=== PATIENT | male | born 1975 | race Two or more races ===

== ENCOUNTER 2018-09-11 14:18 | Emergency (ER) | payer OTHER ==
--- NOTE | 2018-09-11 14:21 | EDM.PDOC ---
ED HPI GENERAL MEDICAL PROBLEM - General Chief Complaint: Laceration Stated Complaint: SENT FROM [facility]. Time Seen by Provider: 09/11/18 14:20 Source of Information: Reports: Patient History Limitations: Reports: No Limitations - History of Present Illness INITIAL COMMENTS - FREE TEXT/NARRATIVE: History of present illness: []Patient was using a sandblasted 11:30 this morning while on a ladder when the ladder gave way and the sandblaster cut his left hand area and patient went to [facility] and then was sent to the emergency room. Patient is not up-to- date with immunizations. Review of systems: As per history of present illness and below otherwise all systems reviewed and negative. Past medical history: As per history of present illness and as reviewed below otherwise noncontributory. Surgical history: As per history of present illness and as reviewed below otherwise noncontributory. Social history: No reported history of drug or alcohol abuse. Family history: As per history of present illness and as reviewed below otherwise noncontributory. Physical exam: General: Well developed, well nourished in NAD HEENT: Atraumatic, normocephalic, pupils reactive, negative for conjunctival pallor or scleral icterus, mucous membranes moist, throat clear, neck supple, nontender, trachea midline. Lungs: Clear to auscultation, breath sounds equal bilaterally, chest nontender. Heart: S1S2, regular, negative for clicks, rubs, or JVD. Abdomen: NABS, Soft, nondistended, nontender. Negative for masses or hepatosplenomegaly. Negative for costovertebral tenderness. Pelvis: Stable nontender. Genitourinary: Deferred. Rectal: Deferred. Extremities: Left hand with laceration dorsal base of index finger and over his index metacarpal no bone visualized, no active bleeding sensation intact distally negative for cords or calf pain. Neurovascular unremarkable. Neuro: Awake, alert, oriented. Cranial nerves II through XII unremarkable. Cerebellum unremarkable. Motor and sensory unremarkable throughout. Exam nonfocal. Skin:warm and dry Diagnostics: Left hand x-ray showing no fractures, sandblasted debris and gas in his hand Therapeutics: Toradol, tetanus update and Ancef IV ED Course: Stable, called [facility] accepts Impression: Sandblasted injury to hand Prescriptions: None Plan: Answer to [facility] to [facility] surgery for either treatment. Definitive disposition and diagnosis as appropriate pending reevaluation and review of above. left arm Pain Score (Numeric/FACES): 7 - Related Data Allergies Allergy/AdvReac Type Severity Reaction Status Date / Time No Known Allergies Allergy Verified 09/11/18 14:25 Home Meds: Home Meds . [No Known Home Meds] 09/11/18 [History] ED ROS GENERAL - Review of Systems Review Of Systems: ROS reveals no pertinent complaints other than HPI. ED EXAM, SKIN/RASH Exam: See Below (See history of present illness) Course - Vital Signs Last Recorded V/S: Last Vital Signs Temp 98.5 F 09/11/18 14:24 Pulse 78 09/11/18 14:24 Resp 18 09/11/18 14:24 BP 127/87 09/11/18 14:24 Pulse Ox 98 09/11/18 14:24 - Orders/Labs/Meds Orders: Active Orders 24 hr Category Date Time Status Vaccines to be Administered [RC] PER UNIT ROUTINE Care 09/11/18 14:27 Active NPO [Nothing Per Oral Diet] [DIET] Diet 09/11/18 Dinner Active Sodium Chloride 0.9% [Saline Flush] Med 09/11/18 14:46 Active 10 ml FLUSH ASDIRECTED PRN Sodium Chloride 0.9% [Saline Flush] Med 09/11/18 14:46 Active 2.5 ml FLUSH ASDIRECTED PRN ceFAZolin [Ancef] 1 gm Med 09/11/18 15:13 Active Premix Bag 1 bag IV ONETIME Saline Lock Insert [OM.PC] Stat Oth 09/11/18 14:46 Ordered Medication Orders Cefazolin Sodium/Dextrose 1 gm (/ Premix) 50 mls @ 100 mls/hr IV ONETIME ONE Stop: 09/11/18 15:42 Last Admin: 09/11/18 15:14 Dose: 100 mls/hr Sodium Chloride (Saline Flush) 10 ml FLUSH ASDIRECTED PRN PRN Reason: Keep Vein Open Sodium Chloride (Saline Flush) 2.5 ml FLUSH ASDIRECTED PRN PRN Reason: Keep Vein Open Meds: Medications Generic Name Dose Route Start Last Admin Trade Name Freq PRN Reason Stop Dose Admin Cefazolin Sodium/Dextrose 1 gm 50 mls @ 100 mls/hr 09/11/18 15:13 09/11/18 15 :14 / Premix IV 09/11/18 15:42 100 mls/hr ONETIME ONE Administration Sodium Chloride 10 ml 09/11/18 14:46 Saline Flush FLUSH ASDIRECTED PRN Keep Vein Open Sodium Chloride 2.5 ml 09/11/18 14:46 Saline Flush FLUSH ASDIRECTED PRN Keep Vein Open Discontinued Medications Generic Name Dose Route Start Last Admin Trade Name Freq PRN Reason Stop Dose Admin Cefazolin Sodium 1 gm 09/11/18 15:00 09/11/18 15:13 Ancef IM 09/11/18 15:01 Not Given ONETIME ONE Cefazolin Sodium 1 gm 09/11/18 15:00 09/11/18 15:13 Ancef IM 09/11/18 15:01 Not Given ONETIME ONE Diphtheria/Tetanus/Acell Pertussis 0.5 ml 09/11/18 14:27 09/11/18 15:05 Adacel IM 09/11/18 14:28 0.5 ml .ONCE ONE Administration Sterile Water Confirm 09/11/18 15:10 09/11/18 15:16 Sterile Water For Injection Administered 09/11/18 15:11 Not Given Dose 20 mls @ as directed .ROUTE .STK-MED ONE Ketorolac Tromethamine 30 mg 09/11/18 14:49 09/11/18 15:02 Toradol IVPUSH 09/11/18 14:50 30 mg ONETIME ONE Administration Departure - Departure Time of Disposition: 15:30 Disposition: DC/Tfer to Acute Hospital 02 Condition: Good Clinical Impression: Laceration of hand with complication Qualifiers: Encounter type: initial encounter Laterality: left Qualified Code(s): S61.412A - Laceration without foreign body of left hand, initial encounter - Discharge Information *PRESCRIPTION DRUG MONITORING PROGRAM REVIEWED*: No *COPY OF PRESCRIPTION DRUG MONITORING REPORT IN PATIENT OSEAS: No Forms: ED Department Discharge Additional Instructions: The following information is given to patients seen in the emergency department who are being discharged to home. This information is to outline your options for follow-up care. We provide all patients seen in our emergency department with a follow-up referral. The need for follow-up, as well as the timing and circumstances, are variable depending upon the specifics of your emergency department visit. If you don't have a primary care physician on staff, we will provide you with a referral. We always advise you to contact your personal physician following an emergency department visit to inform them of the circumstance of the visit and for follow-up with them and/or the need for any referrals to a consulting specialist. The emergency department will also refer you to a specialist when appropriate. This referral assures that you have the opportunity for follow-up care with a specialist. All of these measure are taken in an effort to provide you with optimal care, which includes your follow-up. Under all circumstances we always encourage you to contact your private physician who remains a resource for coordinating your care. When calling for follow-up care, please make the office aware that this follow-up is from your recent emergency room visit. If for any reason you are refused follow-up, please contact the [facility] Emergency Department at and asked to speak to the emergency department charge nurse. - My Orders Last 24 Hours: My Active Orders 09/11/18 14:27 Vaccines to be Administered [RC] PER UNIT ROUTINE 09/11/18 14:46 Sodium Chloride 0.9% [Saline Flush] 10 ml FLUSH ASDIRECTED PRN Sodium Chloride 0.9% [Saline Flush] 2.5 ml FLUSH ASDIRECTED PRN Saline Lock Insert [OM.PC] Stat 09/11/18 15:13 ceFAZolin [Ancef] 1 gm Premix Bag 1 bag IV ONETIME 09/11/18 Dinner NPO [Nothing Per Oral Diet] [DIET] - Assessment/Plan Last 24 Hours: My Active Orders 09/11/18 14:27 Vaccines to be Administered [RC] PER UNIT ROUTINE 09/11/18 14:46 Sodium Chloride 0.9% [Saline Flush] 10 ml FLUSH ASDIRECTED PRN Sodium Chloride 0.9% [Saline Flush] 2.5 ml FLUSH ASDIRECTED PRN Saline Lock Insert [OM.PC] Stat 09/11/18 15:13 ceFAZolin [Ancef] 1 gm Premix Bag 1 bag IV ONETIME 09/11/18 Dinner NPO [Nothing Per Oral Diet] [DIET]
[2018-09-11] MEDS ORDERED: Diphtheria,Pertussis(Acell),Tetanus Vaccine 0.5 ML Syringe IM ONE (14:27)
[2018-09-11] MEDS ORDERED: ceFAZolin 1 GM Vial IM ONE ×3 (14:28→15:00)
[2018-09-11] MEDS ORDERED: Sodium Chloride 0.9% 2.5 ML Syringe FLUSH PRN (14:46)
[2018-09-11] MEDS ORDERED: ceFAZolin 1 GM in Premix Bag 1 BAG IV ONE ×2 (14:46→15:13)
[2018-09-11] MEDS ORDERED: Sodium Chloride 0.9% 10 ML Syringe FLUSH PRN (14:46)
[2018-09-11] MEDS ORDERED: Ketorolac 30 MG/ML SDV IVPUSH ONE (14:49)
--- NOTE | 2018-09-11 15:01 | CR ---
EXAMINATION: Left hand HISTORY: Sandblaster injury COMPARISON: None TECHNIQUE: 3 views FINDINGS/IMPRESSION: There is debris and subcutaneous air projecting along the dorsal aspect of the hand and near the second metacarpal consistent with a sandblaster injury. There is no fracture or acute osseous abnormality. Bone mineralization and joint spaces otherwise appear preserved.
== END 2018-09-11 15:42 ==
LOC: MW.ED 14:18
DX: S61.211A Laceration without foreign body of left index finger without damage to nail, initial encounter (principal); Z23 Encounter for immunization; W40.0XXA Explosion of blasting material, initial encounter
CPT/HCPCS: 73130; 90471; 90715; 96365; 96375; 99283; A4217; J0690; J1885